=== PATIENT | female | born 1995 | race Caucasian/White ===

== ENCOUNTER 2019-03-19 22:29 | Emergency (ER) | payer SELFPAY ==
[~2019-03-19] VITALS: Ht 152.4 cm; Wt 59.0 kg
[2019-03-20 01:59] LABS: BASOPHILS % 0.6 % (0.0-2.0); EOSINOPHILS % 0.4 % (0.0-5.0); HEMATOCRIT. 36.7 % (36.0-48.0); HEMOGLOBIN. 12.5 g/dL (12.0-16.0); LYMPHOCYTES % 36.6 % (20.0-50.0); MEAN CORPUSCULAR HEMOGLOBIN 30.4 pg (28.0-32.0); MEAN CORPUSCULAR VOLUME 89.5 fL (81.0-99.0); MEAN PLATELET VOLUME 8.6 fl (7.4-10.4); MONOCYTES % 8.3 % (2.0-8.0); NEUTROPHILS % 54.1 % (40.0-76.0); PLATELET 165 x1000/uL (130-400)
[2019-03-20 02:06] LABS: CHLORIDE 108 mEq/L (98-107)
[2019-03-20 02:15] LABS: CLARITY URINE CLOUDY (CLEAR); COLOR URINE YELLOW (YELLOW); KETONES URINE 1+ (NEGATIVE); LEUKOCYTE ESTERASE URINE 1+ (NEGATIVE); NITRITE URINE NEGATIVE (NEGATIVE); OCCULT BLOOD URINE NEGATIVE (NEGATIVE); PROTEIN URINE NEGATIVE (NEGATIVE); SPECIFIC GRAVITY URINE 1.025 (1.005-1.030)
[2019-03-20] MEDS ORDERED: TETANUS, DIPHTHERIA, PERTUSSIS VAC/PF 0.5ML (>7YR OLD) IM ONE (02:15)
[2019-03-20] MEDS ORDERED: LIDOCAINE HCL/PF 1% 10 MG/ML 5ML VIAL IJ ONE (02:15)
[2019-03-20 04:17] VITALS: BP 116/68
== END 2019-03-20 04:20 | disposition home or self-care (01) ==
LOC: ER 22:29
DX: S01.01XA Laceration without foreign body of scalp, initial encounter (principal); R55 Syncope and collapse; S09.8XXA Other specified injuries of head, initial encounter; W18.2XXA Fall in (into) shower or empty bathtub, initial encounter; Y93.89 Activity, other specified; Y92.89 Other specified places as the place of occurrence of the external cause; Z91.013 Allergy to seafood
CPT/HCPCS: 12001; 36415; 80053; 81003; 81025; 85025; 85610; 90471; 90715; 93005; 99284; J3490; Z7610

== ENCOUNTER 2019-03-31 16:46 | Emergency (ER) | payer MEDICAID ==
[~2019-03-31] VITALS: Ht 152.4 cm; Wt 61.0 kg
[2019-03-31 19:42] VITALS: BP 108/55
== END 2019-03-31 19:43 | disposition home or self-care (01) ==
LOC: ER 18:18
DX: S01.01XD Laceration without foreign body of scalp, subsequent encounter (principal); Z91.013 Allergy to seafood; X58.XXXD Exposure to other specified factors, subsequent encounter
CPT/HCPCS: 99281